=== PATIENT | male | born 1935 | race Hispanic/Latino ===

== ENCOUNTER 2024-03-22 17:41 | Emergency (ER) | payer MEDICARE ==
[2024-03-22] MEDS ORDERED: Acetaminophen 500 MG TAB ONE (18:55)
== END 2024-03-22 20:45 | disposition home or self-care (01) ==
LOC: ERS 17:41
DX: M17.12 Unilateral primary osteoarthritis, left knee (principal); W19.XXXA Unspecified fall, initial encounter; Z55.6 Problems related to health literacy; Z87.891 Personal history of nicotine dependence